=== PATIENT | female | born 1960 | race Two or more races ===

== ENCOUNTER 2018-06-30 08:48 | Outpatient (CLI) | payer OTHER | END 2018-06-30 09:05 | disposition home or self-care (01) | LOC: RX STUDY 08:48 | DX: R13.19 Other dysphagia (principal); K44.9 Diaphragmatic hernia without obstruction or gangrene ==

== ENCOUNTER 2019-11-10 08:46 | Outpatient (CLI) | payer OTHER | END 2019-11-10 08:54 | disposition home or self-care (01) | LOC: LAB 08:46 | DX: R07.89 Other chest pain (principal); I10 Essential (primary) hypertension; E78.2 Mixed hyperlipidemia ==

== ENCOUNTER 2019-11-10 09:25 | Outpatient (CLI) | payer OTHER | END 2019-11-10 09:31 | disposition home or self-care (01) | LOC: RAD 09:25 | PROVIDERS: ATTEND General Practice | DX: R07.89 Other chest pain (principal); I10 Essential (primary) hypertension ==

== ENCOUNTER 2019-12-28 18:55 | Emergency (ER) | payer OTHER ==
[~2019-12-28] VITALS: Ht 165.1 cm; Wt 63.5 kg
[2019-12-28] MEDS ORDERED: CRESTOR10 MG (19:22)
[2019-12-28] MEDS ORDERED: ALTACE10 MG (19:22)
== END 2019-12-28 20:09 | disposition home or self-care (01) ==
LOC: ER 18:55
DX: R60.0 Localized edema (principal); T78.49XA Other allergy, initial encounter; X58.XXXA Exposure to other specified factors, initial encounter

== ENCOUNTER 2020-02-23 13:06 | Outpatient (CLI) | payer OTHER ==
[~2020-02-23 13:06] MED LIST: ALTACE10 MG; CRESTOR10 MG
== END 2020-02-23 13:19 | disposition home or self-care (01) ==
LOC: MAMO-SONO 13:06
PROVIDERS: ATTEND Obstetrics & Gynecology
DX: Z12.31 Encounter for screening mammogram for malignant neoplasm of breast (principal); N64.59 Other signs and symptoms in breast; N63.10 Unspecified lump in the right breast, unspecified quadrant; N63.20 Unspecified lump in the left breast, unspecified quadrant